=== PATIENT | male | born 1960 | race Caucasian/White ===

== ENCOUNTER 2018-08-25 17:37 | Emergency (ER) | payer OTHER ==
[~2018-08-25] VITALS: Ht 157.5 cm; Wt 102.1 kg
--- NOTE | 2018-08-25 18:11 | PHYS DOC ---
Past Medical History Past Medical History: Hypertension Past Surgical History: Gastric Bypass, Tonsillectomy Alcohol Use: None Drug Use: None Adult General Chief Complaint Chief Complaint: HEARTBURN/GI DISTRESS HPI HPI Patient is a 58 year old pleasant male who presents to the ER, accompanied by his , with complaints of epigastric discomfort today that began about an hour and a half ago after eating peanut M&Ms. Pt currently denies any epigastric pain. He also denies any chest pain, nausea, vomiting, lower extremity swelling, neck pain, shortness of breath, sweating, back pain, or dizziness. Pt describes the discomfort as fullness and the sensation to belch. Pt states that belching did not help to relieve the pain and that nothing made the pain better or worse. Review of Systems Review of Systems Constitutional: Denies fever or chills [] Eyes: Denies change in visual acuity, redness, or eye pain [] HENT: Denies nasal congestion or sore throat [] Respiratory: Denies cough or shortness of breath [] Cardiovascular: Denies chest pain GI: Denies nausea, vomiting, or diarrhea; reports epigastric fullness earlier today denies currently Musculoskeletal: Denies back pain or joint pain [] Integument: Denies rash or skin lesions [] Neurologic: Denies headache, focal weakness or sensory changes [] All other systems were reviewed and found to be within normal limits, except as documented in this note. Current Medications Current Medications Current Medications Medications (Trade) Dose Ordered Sig/Jett Start Time Stop Time Status Last Admin Dose Admin Aspirin (Gamal Aspirin) 325 mg 1X ONCE 08/25/18 18:15 08/25/18 18:16 DC 08/25/18 18:33 325 MG Allergies Allergies Allergies Coded Allergies Type Severity Reaction Last Updated Verified No Known Allergies Allergy Unknown 08/25/18 Yes Physical Exam Physical Exam Constitutional: Well developed, well nourished, no acute distress, non-toxic appearance, obese. [] HENT: Normocephalic, atraumatic, bilateral external ears normal, nose normal. [] Eyes: PERRLA, conjunctiva normal, no discharge. [] Neck: Normal range of motion, no tenderness, supple, no stridor. [] Cardiovascular:Heart rate regular rhythm, no murmur [] Lungs & Thorax: Bilateral breath sounds clear to auscultation [] Abdomen: Bowel sounds normal, soft, no tenderness, no masses, no pulsatile masses. [] Skin: Warm, dry, no erythema, no rash. [] Back: No tenderness Extremities: No cyanosis, no clubbing, ROM intact, no edema. [] Neurologic: Alert and oriented X 3, normal motor function, normal sensory function, no focal deficits noted. [] Psychologic: Affect normal, judgement normal, mood normal. [] Current Patient Data Vital Signs Vital Signs Date Time Temp Pulse Resp B/P (MAP) Pulse Ox O2 Delivery O2 Flow Rate FiO2 08/25/18 21:00 80 16 106/64 (78) 95 Room Air 08/25/18 17:51 98.0 98.0 Lab Values Laboratory Tests Test 08/25/18 18:20 08/25/18 19:53 08/25/18 20:45 White Blood Count 10.1 x10^3/uL (4.0-11.0) Red Blood Count 4.76 x10^6/uL (4.30-5.70) Hemoglobin 14.7 g/dL (13.0-17.5) Hematocrit 41.8 % (39.0-53.0) Mean Corpuscular Volume 88 fL (79-100) Mean Corpuscular Hemoglobin 31 pg (25-35) Mean Corpuscular Hemoglobin Concent 35 g/dL (31-37) Red Cell Distribution Width 13.4 % (11.5-14.5) Platelet Count 212 x10^3/uL (140-400) Neutrophils (%) (Auto) 76 % (31-73) H Lymphocytes (%) (Auto) 16 % (24-48) L Monocytes (%) (Auto) 6 % (0-9) Eosinophils (%) (Auto) 1 % (0-3) Basophils (%) (Auto) 1 % (0-3) Neutrophils # (Auto) 7.7 x10^3uL (1.8-7.7) Lymphocytes # (Auto) 1.6 x10^3/uL (1.0-4.8) Monocytes # (Auto) 0.6 x10^3/uL (0.0-1.1) Eosinophils # (Auto) 0.1 x10^3/uL (0.0-0.7) Basophils # (Auto) 0.1 x10^3/uL (0.0-0.2) Prothrombin Time 12.1 SEC (11.7-14.0) Prothrombin Time INR 0.9 (0.8-1.1) Sodium Level 140 mmol/L (136-145) Potassium Level 3.8 mmol/L (3.5-5.1) Chloride Level 102 mmol/L (98-107) Carbon Dioxide Level 27 mmol/L (21-32) Anion Gap 11 (6-14) Blood Urea Nitrogen 17 mg/dL (8-26) Creatinine 1.2 mg/dL (0.7-1.3) Estimated GFR (Cockcroft-Gault) 62.2 BUN/Creatinine Ratio 14 (6-20) Glucose Level 87 mg/dL (70-99) Calcium Level 9.2 mg/dL (8.5-10.1) Magnesium Level 2.3 mg/dL (1.8-2.4) Total Bilirubin 0.7 mg/dL (0.2-1.0) Aspartate Amino Transferase (AST) 87 U/L (15-37) H Alanine Aminotransferase (ALT) 59 U/L (16-63) Alkaline Phosphatase 140 U/L (46-116) H Creatine Kinase 73 U/L (39-308) Creatine Kinase MB (Mass) < 0.5 ng/mL (0.0-3.6) Creatine Kinase MB Relative Index % (0-4) Troponin I Quantitative < 0.017 ng/mL (0.000-0.055) < 0.017 ng/mL (0.000-0.055) EW-Vkz-C-Type Natriuretic Peptide 226 pg/mL (0-124) H Total Protein 8.2 g/dL (6.4-8.2) Albumin 4.4 g/dL (3.4-5.0) Albumin/Globulin Ratio 1.2 (1.0-1.7) Lipase 279 U/L (73-393) Urine Collection Type Void Urine Color Yellow Urine Clarity Clear Urine pH 5.0 Urine Specific [place] 1.015 Urine Protein Negative mg/dL (NEG-TRACE) Urine Glucose (UA) Negative mg/dL (NEG) Urine Ketones (Stick) Negative mg/dL (NEG) Urine Blood Negative (NEG) Urine Nitrite Negative (NEG) Urine Bilirubin Negative (NEG) Urine Urobilinogen Dipstick 0.2 mg/dL (0.2 mg/dL) Urine Leukocyte Esterase Small (NEG) Urine RBC 0 /HPF (0-2) Urine WBC 1-4 /HPF (0-4) Urine Squamous Epithelial Cells None /LPF Urine Bacteria 0 /HPF (0-FEW) Urine Mucus Slight /LPF Laboratory Tests 08/25/18 18:20 Laboratory Tests 08/25/18 18:20 EKG EKG #1 1807 SR, no STEMI read by Dr. Abbott #2 426 NSR, no STEMI read by Dr. Abbott[] Radiology/Procedures Radiology/Procedures PROCEDURE: PORTABLE CHEST 1V Single view chest 08/25/2018 CLINICAL INDICATION: Chest pain. COMPARISON: None. FINDINGS: Mediastinal silhouette unremarkable. Silhouetting of the lateral left hemidiaphragm. No pleural effusion or pneumothorax. IMPRESSION: Silhouetting of the lateral left hemidiaphragm, may be due to a prominent pericardial fat pad, however solid or cystic mass cannot be excluded. Follow-up 2 view chest radiograph or CT is recommended.[] PROCEDURE: PORTABLE CHEST 1V PORTABLE CHEST 1V dated 08/25/2018 7:36 PM. Comparison: Study dated same day. Clinical Indication: CHEST PAIN. LATERAL VIEW NEEDED.. Findings: Lateral view of the chest compared to AP view performed same day. Lungs are somewhat hyperinflated with flattening of the hemidiaphragms. Heart and mediastinal contours are within normal limits. Lungs are clear. No consolidation or pleural effusion. Prominent pericardial fat pad on the left. Impression: No acute radiographic abnormality. Findings suggestive of COPD. Course & Med Decision Making Course & Med Decision Making Pertinent Labs and Imaging studies reviewed. (See chart for details) Dx: Epigastric pain Troponin negative x2, ekg negative x2, low suspicion for ACS. Labs WNL, No acute findings on CXR. Prescription written for Famotidine 20 mg PO bid. Avoid spicy, carbonated, and fried foods as they may irritate your stomach. Follow up with your primary care doctor this week. Discussed ACS sx with patient including chest pain, SOA, dizziness, nausea, vomiting, back pain, neck pain, left arm pain, and epigastric pain encouraged patient to return to ER for worsening sx. Patient verbalized an understanding of home care, medications, follow-up, and return to ED instructions and was in agreement with the plan of care. [] Margarita Disclaimer Dragon Disclaimer This electronic medical record was generated, in whole or in part, using a voice recognition dictation system. Departure Departure Impression: Primary Impression: Acute epigastric pain Additional Impression: Heartburn Disposition: HOME, SELF-CARE Condition: STABLE Referrals: UNKNOWN PCP NAME (PCP) Patient Instructions: Heartburn, [id number] Additional Instructions: Avoid spicy, carbonated, and fried foods as they may irritate your stomach. Follow up with your primary care doctor this week. Return to the ER if your symptoms return. Scripts Famotidine (FAMOTIDINE) 20 Mg Tablet 20 MG PO BID for 10 Days, #20 TAB 0 Refills Prov: AYAAN SADLER APRN 08/25/18 Attending Signature Attending Signature I have reviewed the PA/PRIMARY CARE NURSE's note and plan of care. I was available for consultation as needed during the patient's visit in the emergency department. I agree with the clinical impression, plan, and disposition. Problem Qualifiers AYAAN SADLER APRN Aug 25, 2018 18:11 JANETTE ABBOTT DO Aug 26, 2018 03:11
[2018-08-25] MEDS ORDERED: ASPIRIN 325 MG TABLET PO ONE (18:15)
--- NOTE | 2018-08-25 18:40 | RAD ---
Single view chest 08/25/2018 CLINICAL INDICATION: Chest pain. COMPARISON: None. FINDINGS: Mediastinal silhouette unremarkable. Silhouetting of the lateral left hemidiaphragm. No pleural effusion or pneumothorax. IMPRESSION: Silhouetting of the lateral left hemidiaphragm, may be due to a prominent pericardial fat pad, however solid or cystic mass cannot be excluded. Follow-up 2 view chest radiograph or CT is recommended. Electronically signed by: Dante Jerez MD (08/25/2018 6:38 PM) [facility]
[2018-08-25 18:41] LABS: BASO # 0.1 x10^3/uL (0.0-0.2); BASO % 1 % (0-3); EOS # 0.1 x10^3/uL (0.0-0.7); EOS % 1 % (0-3); HEMATOCRIT 41.8 % (39.0-53.0); HEMOGLOBIN 14.7 g/dL (13.0-17.5); LYMPH # 1.6 x10^3/uL (1.0-4.8); LYMPH % 16 % (24-48); MEAN CORPUSCULAR HEMOGLOBIN 31 pg (25-35); MEAN CORPUSCULAR HGB CONC 35 g/dL (31-37); MEAN CORPUSCULAR VOLUME 88 fL (79-100); MONO # 0.6 x10^3/uL (0.0-1.1); MONO % 6 % (0-9); NEUT # 7.7 x10^3uL (1.8-7.7); NEUT % 76 % (31-73); PLATELET COUNT 212 x10^3/uL (140-400); RED BLOOD COUNT 4.76 x10^6/uL (4.30-5.70); RED CELL DISTRIBUTION WIDTH 13.4 % (11.5-14.5); WHITE BLOOD COUNT 10.1 x10^3/uL (4.0-11.0)
[2018-08-25 18:56] LABS: PROTHROMBIN TIME PATIENT 12.1 SEC (11.7-14.0)
[2018-08-25 18:57] LABS: CALCIUM 9.2 mg/dL (8.5-10.1); CREATININE 1.2 mg/dL (0.7-1.3); GFR 62.2; POTASSIUM 3.8 mmol/L (3.5-5.1)
[2018-08-25 19:03] LABS: ALBUMIN 4.4 g/dL (3.4-5.0); ALBUMIN/GLOBULIN RATIO 1.2 (1.0-1.7); MAGNESIUM 2.3 mg/dL (1.8-2.4); TOTAL BILIRUBIN 0.7 mg/dL (0.2-1.0); TOTAL PROTEIN 8.2 g/dL (6.4-8.2)
[2018-08-25 19:09] LABS: CREATINE KINASE 73 U/L (39-308)
--- NOTE | 2018-08-25 20:15 | RAD ---
PORTABLE CHEST 1V dated 08/25/2018 7:36 PM. Comparison: Study dated same day. Clinical Indication: CHEST PAIN. LATERAL VIEW NEEDED.. Findings: Lateral view of the chest compared to AP view performed same day. Lungs are somewhat hyperinflated with flattening of the hemidiaphragms. Heart and mediastinal contours are within normal limits. Lungs are clear. No consolidation or pleural effusion. Prominent pericardial fat pad on the left. Impression: No acute radiographic abnormality. Findings suggestive of COPD. Electronically signed by: Lam Soares MD (08/25/2018 8:12 PM) [id number]
[2018-08-25 20:16] LABS: BILIRUBIN,URINE NEGATIVE (NEG); CLARITY,URINE CLEAR; COLOR,URINE YELLOW; NITRITE,URINE NEGATIVE (NEG); PROTEIN,URINE NEGATIVE (NEG-TRACE); UROBILINOGEN,URINE 0.2 mg/dL (0.2 mg/dL)
[2018-08-25 20:29] LABS: BACTERIA,URINE 0 /HPF (0-FEW); RBC,URINE 0 /HPF (0-2)
[2018-08-25 21:00] VITALS: BP 106/64
[2018-08-25] MEDS ORDERED: FAMO20TA5 PO (22:19)
--- NOTE | 2018-08-26 03:27 | EKG ---
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
--- NOTE | 2018-08-26 07:15 | EKG ---
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
== END 2018-08-25 22:36 | disposition home or self-care (01) ==
LOC: ER 17:37
DX: R10.13 Epigastric pain (principal); R12 Heartburn; I10 Essential (primary) hypertension; Z98.84 Bariatric surgery status
CPT/HCPCS: 36415; 71045; 80053; 81001; 82550; 82553; 83690; 83735; 83880; 84484; 85025; 85610; 87086; 93005; 99285-25